=== PATIENT | female | born 1970 | race Caucasian/White ===

== ENCOUNTER 2017-01-23 17:02 | Emergency (ER) | payer OTHER ==
[~2017-01-23] VITALS: Ht 160 cm; Wt 62.0 kg
[~2017-01-23 17:02] MED LIST: PREN0.01 PO
[2017-01-23 17:04] VITALS: BP 198/98; PULSE 75; RESP 16; TEMP 98.4; O2SAT 98
[2017-01-23] MEDS ORDERED: CLIN1CAP5 PO (17:39)
[2017-01-23] MEDS ORDERED: IBUP800T23 PO (17:39)
--- NOTE | 2017-01-23 17:39 | PD ---
HPI Chief Complaint: Laceration/Skin Injury Time Seen by Provider: 17:37 Travel History International Travel<30 days: No Contact w/Intl Traveler<30days: No Traveled to known affect area: No History of Present Illness HPI 46-year-old female presents emergency Department with complaint of laceration to her left third, fourth, fifth fingers after cutting them accidentally with a knife while cutting food on Sunday night. Reports being updated her tetanus vaccination. Says the fingers are numb and tingly but denies loss of sensation. Since they started throbbing so she wanted them evaluated. Denies fever, vomiting. Denies drainage from the cuts. Has been applying antibiotic ointment and keeping them covered with Band-Aids. Symptoms are mild in severity. Has no medical complaints. Allergies penicillin. No other modifying factors or associated signs and symptoms. [facility] Social History Tobacco Use: No Allergies-Medications (Allergen,Severity, Reaction): Coded Allergies: penicillin G (Unverified Allergy, Severe, SEVERE HIVES, 01/23/17) Reported Meds & Prescriptions Reported Meds & Active Scripts Active Ibuprofen 800 Mg Tab 800 Mg PO Q6HR PRN Clindamycin (Clindamycin HCl) 150 Mg Cap 300 Mg PO Q8HR 5 Days Reported Vit ( Plus) (Prenat Multivit/Pick Pack Worker/Iron/Folic Ac) Tab 1 Tab PO DAILY Review of Systems Except as stated in HPI: all other systems reviewed are Neg Physical Exam Narrative GENERAL: Well-nourished, well-developed female patient, in no acute distress SKIN: Warm and dry. Left distal, palmar aspect fourth and fifth fingers with cuts that are healing by secondary intention; without erythema, edema, drainage. No signs of infection. Left distal, palmar aspect third finger with laceration that is healing by secondary intention and without erythema, edema, drainage. No signs of infection. All fingers are with full range of motion and sensory intact; without erythema, edema; fingers are pink and warm and less than 3 second cap refill. HEAD: Atraumatic. Normocephalic. EYES: Pupils equal and round. No scleral icterus. No injection or drainage. ENT: Mucosa pink and moist. Airway patent. NECK: Trachea midline. CARDIOVASCULAR: Regular rate. RESPIRATORY: No accessory muscle use. GASTROINTESTINAL: Flat. MUSCULOSKELETAL: No obvious deformities. No clubbing. No cyanosis. No edema. NEUROLOGICAL: Awake and alert. Oriented 3. No obvious cranial nerve deficits. Motor grossly within normal limits. Normal speech. PSYCHIATRIC: Appropriate mood and affect; insight and judgment normal. Data Data Last Documented VS [facility] Medical Decision Making Medical Screen Exam Complete: Yes Emergency Medical Condition: Yes Medical Record Reviewed: Yes ( ) Differential Diagnosis Laceration, cut, medical clearance Narrative Course 46-year-old female with lacerations that are healing by secondary intention to the left third, fourth and fifth digits. Patient up-to-date on tetanus vaccination. The injury happened 2 days ago and the lacerations are already in healing stage and are unable to be repaired with suturing. There are no signs of infection. I will start patient on clindamycin to avoid infection. Ibuprofen clindamycin prescribed for home. Instructed patient to follow up with primary care provider. Patient verbalizes understanding and agreement with treatment plan. Patient is medically cleared and stable for discharge. Discussed reasons to return to the emergency department. Patient agrees with treatment plan. The patients vital signs are stable and the patient is stable for outpatient follow-up and treatment. Patient discharged home, stable and in no acute distress. Diagnosis Primary Impression: Finger laceration Qualified Codes: S61.219A - Laceration without foreign body of unspecified finger without damage to nail, initial encounter Med/Other Pt SpecificInfo: Prescription(s) given Scripts Ibuprofen (Ibuprofen) 800 Mg Tab 800 MG PO Q6HR Y for PAIN, #30 TAB 0 Refills Prov: Licha HaasP 01/23/17 Clindamycin (Clindamycin) 150 Mg Cap 300 MG PO Q8HR for Infection for 5 Days, CAP 0 Refills Prov: Licha HaasP 01/23/17 Disposition: 01 DISCHARGE HOME Condition: Stable Licha Haas Jan 23, 2017 17:39
== END 2017-01-23 17:40 | disposition home or self-care (01) ==
LOC: EDTENT 17:02
DX: S61.219A Laceration without foreign body of unspecified finger without damage to nail, initial encounter (principal); W26.0XXA Contact with knife, initial encounter; Y93.G3 Activity, cooking and baking
CPT/HCPCS: 99283